=== PATIENT | male | born 1940 | race Caucasian/White ===

== ENCOUNTER → 2023-10-15 12:53 | Outpatient (REF) | payer MEDICARE, BC, SELFPAY | LOC: DHCBC MAIN 12:53 | PROVIDERS: ATTENDING PHYSICIAN Internal Medicine; FAMILY PHYSICIAN Family Medicine | DX: Z95.2 Presence of prosthetic heart valve (principal); T82.857D Stenosis of other cardiac prosthetic devices, implants and grafts, subsequent encounter | CPT/HCPCS: 93306 ==

== ENCOUNTER → 2023-12-18 11:46 | Outpatient (REF) | payer MEDICARE, BC, SELFPAY ==
[2023-12-18 12:42] LABS: INR 3.41; PT 34.4 Sec (11.4-14.6)
== END ==
LOC: REG 11:46
PROVIDERS: ATTENDING PHYSICIAN Internal Medicine; FAMILY PHYSICIAN Family Medicine
DX: Z95.2 Presence of prosthetic heart valve (principal)
CPT/HCPCS: 36415; 85610

== ENCOUNTER → 2023-12-24 14:54 | Outpatient (REF) | payer MEDICARE, BC, SELFPAY ==
[2023-12-24 18:13] LABS: INR 2.52; PT 27.5 Sec (11.4-14.6)
== END ==
LOC: REG 14:54
PROVIDERS: ATTENDING PHYSICIAN Internal Medicine; FAMILY PHYSICIAN Family Medicine
DX: Z95.2 Presence of prosthetic heart valve (principal)
CPT/HCPCS: 36415; 85610

== ENCOUNTER → 2024-01-04 11:17 | Outpatient (REF) | payer MEDICARE, BC, SELFPAY ==
[2024-01-04 12:34] LABS: INR 3.05; PT 31.5 Sec (11.4-14.6)
== END ==
LOC: REG 11:17
PROVIDERS: ATTENDING PHYSICIAN Internal Medicine; FAMILY PHYSICIAN Family Medicine
DX: Z95.2 Presence of prosthetic heart valve (principal); I35.0 Nonrheumatic aortic (valve) stenosis
CPT/HCPCS: 36415; 85610

== ENCOUNTER → 2024-01-15 12:42 | Outpatient (REF) | payer MEDICARE, BC, SELFPAY ==
[2024-01-15 13:50] LABS: INR 3.19; PT 32.6 Sec (11.4-14.6)
== END ==
LOC: REG 12:42
PROVIDERS: ATTENDING PHYSICIAN Internal Medicine; FAMILY PHYSICIAN Family Medicine
DX: Z95.2 Presence of prosthetic heart valve (principal)
CPT/HCPCS: 36415; 85610

== ENCOUNTER → 2024-02-26 11:54 | Outpatient (REF) | payer MEDICARE, BC, SELFPAY ==
[2024-02-26 13:24] LABS: INR 3.14; PT 32.2 Sec (11.4-14.6)
== END ==
LOC: REG 11:54
PROVIDERS: ATTENDING PHYSICIAN Internal Medicine; FAMILY PHYSICIAN Family Medicine
DX: Z95.2 Presence of prosthetic heart valve (principal)
CPT/HCPCS: 36415; 85610

== ENCOUNTER → 2024-03-09 12:06 | Outpatient (REF) | payer MEDICARE, BC, SELFPAY ==
[2024-03-09 13:39] LABS: INR 3.01; PT 31.6 Sec (11.4-14.6)
== END ==
LOC: REG 12:06
PROVIDERS: ATTENDING PHYSICIAN Internal Medicine; FAMILY PHYSICIAN Family Medicine
DX: Z95.2 Presence of prosthetic heart valve (principal)
CPT/HCPCS: 36415; 85610

== ENCOUNTER → 2024-04-04 12:13 | Outpatient (REF) | payer MEDICARE, BC, SELFPAY ==
[2024-04-04 13:29] LABS: INR 2.32; PT 25.4 Sec (11.4-14.6)
== END ==
LOC: REG 12:13
PROVIDERS: ATTENDING PHYSICIAN Internal Medicine; FAMILY PHYSICIAN Family Medicine
DX: Z95.2 Presence of prosthetic heart valve (principal)
CPT/HCPCS: 36415; 85610

== ENCOUNTER → 2024-05-10 13:12 | Outpatient (REF) | payer MEDICARE, BC, SELFPAY ==
[2024-05-10 14:26] LABS: PT 30.2 Sec (11.4-14.6)
== END ==
LOC: REG 13:12
PROVIDERS: ATTENDING PHYSICIAN Internal Medicine; FAMILY PHYSICIAN Family Medicine
DX: Z95.2 Presence of prosthetic heart valve (principal)
CPT/HCPCS: 36415; 85610

== ENCOUNTER → 2024-06-16 12:14 | Outpatient (REF) | payer MEDICARE, BC, SELFPAY | LOC: RAD 12:14 | PROVIDERS: ATTENDING PHYSICIAN Family Medicine | DX: M54.50 Low back pain, unspecified (principal) | CPT/HCPCS: 72072; 72110 ==

== ENCOUNTER 2024-06-28 17:34 | Emergency (ER) | payer MEDICARE, BC, SELFPAY ==
[2024-06-28 17:39] VITALS: BP 108/59
--- NOTE | 2024-06-28 17:40 | ED.GENMED ---
ED Provider Triage
<Miranda Diamond PA-C - Last Filed: 06/30/24 15:01>
-
Patient seen by provider in Triage?: Seen in Triage
Attestation: A medical screening examination has been initiated by a qualified medical provider. Based on the assessment performed at this time, it has been determined that an emergent medical condition may exist and the patient has been informed
that further medical evaluation and possible additional diagnostic testing may be needed.
HPI: 84yoM here after a fall at 2pm today. Sitting on bed, got up to turn off the CPAP and fell. He is not sure why he fell. Denies any preceding dizziness. +Head strike, no LOC. Had an MRI of his back today due to ongoing pain. On Warfarin.
GENERAL: Alert , in no apparent distress
EYE: No visual abnormalities.
NECK: Trachea midline
ENT: No visible abnormalities.
LUNGS: No acute respiratory distress
NEUROLOGICAL: Alert and oriented
SKIN: Skin intact. No visible changes.
MUSCULOSKELETAL: Moving extremities normally
PSYCH: Normal and appropriate interaction.
This is a medical evaluation conducted in person to initiate diagnostic evaluation and provide initial therapeutics. Please see further documentation by the treating clinician.
CT head ordered.
History of Present Illness
<Miranda Diamond PA-C - Last Filed: 06/30/24 15:01>
General
Chief Complaint: Head Injury
Time Seen by Provider: 06/28/24 18:48
<Ivan Herman MD - Last Filed: 06/28/24 20:16>
General
Source: patient
Exam Limitations: none
Nursing documentation reviewed up to this point in time: agreed with
History of Present Illness
History of Present Illness:
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 Patient reports that he stood up and lost
his balance and fell down�initially he said in triage he was not sure how he fell but he says that on thinking about it he believes he may have fallen because he was having some back pain and lost his balance with a walker. He did hit his head but
did not lose consciousness. Brought into the emergency to be evaluated. He denies any preceding dizziness, chest pain or any other symptoms. He denies any headache or neck pain. He does have back pain but this is a chronic issue�it has been
ongoing since April and he has been seeing his primary doctor (Dr. Pineda) for this issue. He has been managing his symptoms with Tylenol and cyclobenzaprine and today had an MRI to better evaluate source of his back pain. He says his pain is no
worse than. Denies any weakness numbness in the legs, saddle anesthesia, incontinence issues.
Review of Systems
<Ivan Herman MD - Last Filed: 06/28/24 20:16>
Review of Systems
All Other Systems: ROS reviewed and negative except as documented in HPI and ROS
Constitutional: Denies fever
Respiratory: Denies trouble breathing
Cardiac: Denies chest pain
ABD/GI: Denies abdominal pain, nausea or vomiting
: Denies flank pain
Musculoskeletal: Reports back pain; Denies joint pain or neck pain
Neurological: Denies dizzy or headache
Phy Exam
<Ivan Herman MD - Last Filed: 06/28/24 20:16>
Physical Exam
Physical Exam:
General: Awake, alert, oriented x3; no acute distress
Head: Normocephalic, minor abrasion to the crown of the head
Eyes: Conjunctiva normal, pupils equal round reactive to light bilaterally
Throat: Airway intact, handling secretions
Neck: Trachea midline, no cervical spine tenderness
Lungs: Clear to auscultation bilaterally, no wheezing, rales, rhonchi
Heart: Regular rate and rhythm, systolic murmur; no chest wall tenderness
Abd: Soft, non distended, nontender
Back: Paraspinal tenderness in the lumbar region, no midline tenderness in the thoracic or lumbar spine no spinal step-offs
Neuro: No gross deficits
Extremities: Atraumatic, no reproducible tenderness, no edema in extremities, equal pulses in all extremities, allows for passive range of motion all extremities without pain
Scores
<Ivan Herman MD - Last Filed: 06/28/24 20:16>
Heart Failure Risk
Heart Failure Risk Score: Not Applicable
Heart Score for Chest Pain Patients
STEMI patient?: Not applicable
Withdrawal Assessment of Alcohol
Withdrawal Assessment Completed?: Not applicable
Course
<Miranda Diamond PA-C - Last Filed: 06/30/24 15:01>
Orders/Labs/Results
Orders:
Orders
06/28/24 17:36
CT Head W/o Iv Contrast Urgent
Comment: on Coumadin
Reason For Exam: head injury
06/28/24 18:49
Electrocardiogram (*1) Urgent
Reason for Study: Vertigo / Dizzy
EKG- Treatment ONCE
06/28/24 18:58
Acetaminophen [Tylenol] 1,000 mg PO NOW STA
06/28/24 19:12
Complete Blood Count/With Diff Urgent
Comprehensive Metabolic Panel Urgent
Prothrombin Time Urgent
Abnormal Lab Results
06/28/24 06/28/24
17:48 19:12
RBC 4.25 L 10^6/uL
(4.70-6.10)
Hct 38.5 L %
(39.0-52.0)
MCH 31.1 H pg
(27.0-31.0)
RDW 15.5 H %
(11.5-14.5)
Absolute Lymphs (auto) 1.0 L 10^3/uL
(1.2-3.4)
Neutrophils % 75.9 H %
(42.2-75.2)
Lymphocytes % 14.1 L %
(20.5-51.1)
PT 33.1 H Sec
(11.4-14.6)
BUN 51 H mg/dl
(9-20)
Creatinine 2.2 H mg/dL
(0.7-1.3)
Glucose 111 H mg/dl
(70-99)
POC Glucose 106 H mg/dl
(70-99)
06/28/24 19:12
06/28/24 19:12
Vital Signs
Initial and Last Documented VS:
Initial Vital Signs
Temp Pulse Resp BP Pulse Ox
98.2 F 89 18 108/59 98
06/28/24 17:39 06/28/24 17:39 06/28/24 17:39 06/28/24 17:39 06/28/24 17:39
Last Documented Vital Signs
Temp Pulse Resp BP Pulse Ox
98.2 F 70 20 125/53 96
06/28/24 17:39 06/28/24 19:45 06/28/24 19:45 06/28/24 19:04 06/28/24 19:45
<Ivan Herman MD - Last Filed: 06/28/24 20:16>
Orders/Labs/Results
Orders:
Orders
06/28/24 17:36
CT Head W/o Iv Contrast Urgent
Comment: on Coumadin
Reason For Exam: head injury
06/28/24 18:49
Electrocardiogram (*1) Urgent
Reason for Study: Vertigo / Dizzy
EKG- Treatment ONCE
06/28/24 18:58
Acetaminophen [Tylenol] 1,000 mg PO NOW STA
06/28/24 19:12
Complete Blood Count/With Diff Urgent
Comprehensive Metabolic Panel Urgent
Prothrombin Time Urgent
Abnormal Lab Results
06/28/24 06/28/24
17:48 19:12
RBC 4.25 L 10^6/uL
(4.70-6.10)
Hct 38.5 L %
(39.0-52.0)
MCH 31.1 H pg
(27.0-31.0)
RDW 15.5 H %
(11.5-14.5)
Absolute Lymphs (auto) 1.0 L 10^3/uL
(1.2-3.4)
Neutrophils % 75.9 H %
(42.2-75.2)
Lymphocytes % 14.1 L %
(20.5-51.1)
PT 33.1 H Sec
(11.4-14.6)
BUN 51 H mg/dl
(9-20)
Creatinine 2.2 H mg/dL
(0.7-1.3)
Glucose 111 H mg/dl
(70-99)
POC Glucose 106 H mg/dl
(70-99)
06/28/24 19:12
06/28/24 19:12
Vital Signs
Initial and Last Documented VS:
Initial Vital Signs
Temp Pulse Resp BP Pulse Ox
98.2 F 89 18 108/59 98
06/28/24 17:39 06/28/24 17:39 06/28/24 17:39 06/28/24 17:39 06/28/24 17:39
Last Documented Vital Signs
Temp Pulse Resp BP Pulse Ox
98.2 F 70 20 125/53 96
06/28/24 17:39 06/28/24 19:45 06/28/24 19:45 06/28/24 19:04 06/28/24 19:45
<Ivan Herman MD - Last Filed: 06/28/24 20:16>
MDM/Problems Addressed
Differential Diagnosis Includes:
Minor head trauma, given blood thinner must rule out intracranial hemorrhage
MDM/Problems Addressed:
84-year-old male presents for evaluation after mechanical fall from ground-level with head trauma. He is on Coumadin status post aortic valve replacement. No other serious injuries from fall although he has had chronic low back pain; had MRI today
as an outpatient. Apparently mention some dizziness in triage he says 'I have dizziness from time to time' but denies having any dizziness today. His vitals and exam are as above. He had a CT head in triage which showed no acute abnormalities.
Will check his INR also check basic screening labs and EKG given reported occasional dizziness. Reassess after the above. Hold on additional back imaging�no midline tenderness, no change in his symptoms since the fall and he already had outpatient
MRI today.
Labs reviewed: CBC unremarkable, CMP shows chronic kidney disease essentially stable. INR 3.24 slightly high side of therapeutic goal. EKG shows sinus rhythm with no high-grade AV block. Patient feeling well remains awake and alert. Vitals have
been stable. Stable for discharge, advised follow-up with Dr. Pineda as an outpatient to review labs and to review results from his outpatient MR today. We spoke about return precautions and all questions were answered.
Chronic conditions affecting care:
Aortic valve placement on Coumadin�this complicates his fall
<Ivan Herman MD - Last Filed: 06/28/24 20:16>
*Radiology
Radiology exam reviewed: radiology read reviewed
*Pulse Oximetry
Patient hypoxic: no
*EKG
Heart Rate: 76
Rate: normal
Rhythm: sinus
[place]: left axis deviation
Interval: first degree heart block
QRS Pattern: normal QRS
Ischemia: no ischemia
*Critical Care Note
Total Time (30-74mins, 75-104mins- exclusive of procedures): Not Applicable
Data Reviewed
Source: patient, records and spouse
ED Attending Note
<Miranda Diamond PA-C - Last Filed: 06/30/24 15:01>
-
Portions of this chart may have been created with voice recognition software.� Occasional wrong word or��sound alike� substitutions may have occurred due to the inherent limitations of voice recognition software.
Discharge Plan
Departure
Patient Disposition: Home (Routine Discharge)
Date of Disposition: 06/28/24
Time of Disposition: 20:08
Patient with high blood pressure during this ER visit?: No
Discharge Problem:
Head trauma
Instructions: Head Injury in Adults (DC)
Prescriptions:
No Action
insulin glargine [Lantus U-100 Insulin] 100 UNIT/ML solution
0 - 40 unit SQ HS
Patient Comments:
DOSE BASED ON BLOOD SUGAR
polyethylene glycol 3350 17 GRAMS powder in packet
17 grams PO Q48H
atorvastatin 10 MG tablet
10 mg PO QPM
coenzyme Q10 60 MG capsule
60 mg PO DAILY
ascorbic acid (vitamin C) [Vitamin C] 500 MG tablet
500 mg PO BID
cinnamon bark [Cinnamon] 500 MG capsule
250 mg PO BID
sitagliptin phosphate [Januvia] 100 MG tablet
100 mg PO QPM
brimonidine-timolol [Combigan] 1 DROP drops
1 drp BOTH EYES BID
saw palmto frt xtr-zinc [place] 1 EACH capsule
1 ea PO BID
Glucose Support Capsules
1 tab PO BID
lisinopril 20 MG tablet
40 mg PO DAILY
aspirin 81 MG tablet,delayed release (DR/EC)
81 mg PO DAILY
hydrochlorothiazide 25 MG tablet
25 mg PO DAILY
insulin aspart U-100 [Novolog FlexPen U-100 Insulin] 300 UNITS/3 ML insulin pen
6 - 25 units SC PRN PRN (Reason: elevated blood sugars)
Patient Comments:
Patient has a free style meter and gives insulin frequently.
acetaminophen 325 MG tablet
650 mg PO Q6HPRN PRN (Reason: headache, mild pain, or fever) 0RF
clopidogrel 75 MG tablet
75 mg PO DAILY Qty: 30 6RF
Referrals:
Migue Pineda MD [Family Provider] - Follow up in 2-3 days
Activity Restrictions/Additional Instructions:
Thank you for visiting the Emergency Department at [facility].
1. Please schedule a follow up appointment as directed. Call first thing tomorrow morning to make an appointment.
2. If indicated, please take your medications as instructed and indicated on discharge paperwork.
3. If any of your symptoms do not improve, or persist, or become more severe within 6-12 hours, please return to the emergency department for further care.
4. Please return to the emergency department if you develop a headache, neck pain/stiffness, fever greater than 100.4F, chest pain, shortness of breath, persistent nausea, vomiting, slurred speech, difficulty walking, numbness/tingling, weakness,
signs of infection or any other symptoms that are worrisome to you.
Please call [phone] if you have any questions.
Interventions
Interventions:
*Risk Screen - Suicide Last Done: 06/28/24 18:35
*General Assessment Last Done: 06/28/24 18:35
*Neglect/Abuse Screening Last Done: 06/28/24 18:35
ED- Fall Risk Assessment Last Done: 06/28/24 18:35
*ED COVID-19 Vaccine History Last Done: 06/28/24 18:35
*Nursing Disposition Last Done: 06/28/24 20:18
ED- Neurological Assessment Last Done: 06/28/24 19:16
ED-Skin Assessment Last Done: 06/28/24 18:35
Discharge Date and Time
Discharge Date/Time: 06/28/24 20:31
Print Language: SALVADOREAN
[2024-06-28 17:49] LABS: Glucose - Point of Care 106 mg/dl (70-99)
[2024-06-28 19:04] VITALS: BP 125/53
[2024-06-28] MEDS: TYLENOL 1000 MG PO (19:04)
[2024-06-28 19:07] VITALS: BMI 36.3
[2024-06-28 19:29] LABS: % Basophils 0.4 % (0-2); % Eosinophils 1.8 % (0-6); % Immature Granulocytes 0.1 % (0-0.5); % Lymphocytes 14.1 % (20.5-51.1); % Monocytes 7.7 % (1.7-9.3); % Neutrophils 75.9 % (42.2-75.2); Absolute Eosinophils 0.1 10^3/uL (0-0.7); Absolute Monocytes 0.5 10^3/uL (0.1-0.6); Absolute Neutrophils 5.1 10^3/uL (1.4-6.5); Hematocrit 38.5 % (39.0-52.0); Hemoglobin 13.2 g/dL (13.0-18.0); Mean Corp Hgb Conc. 34.3 g/dL (33.0-37.0); Mean Corpuscular Hgb 31.1 pg (27.0-31.0); Mean Corpuscular Volume 90.6 fL (80.0-94.0); Mean Platelet Volume 10.2 fL (7.4-10.4); Nucleated Red Blood Cells % 0 % (-); Platelet Count 159 10^3/uL (130-400); Red Blood Cell Count 4.25 10^6/uL (4.70-6.10); Red Cell Dist. Width 15.5 % (11.5-14.5); White Blood Cell Count 6.8 10^3/uL (4.8-10.8)
[2024-06-28 19:35] LABS: INR 3.24; PT 33.1 Sec (11.4-14.6)
[2024-06-28 19:54] LABS: ALT (SGPT) 44 U/L (0-50); AST (SGOT) 46 U/L (17-59); Albumin 4.3 g/dl (3.5-5.0); Alkaline Phosphatase 46 U/L (38-126); Blood Urea Nitrogen 51 mg/dl (9-20); Calcium 9.9 mg/dl (8.4-10.2); Carbon Dioxide 29 mmol/L (22-30); Chloride 98 mmol/L (98-107); Estimated Creatinine Clearance 31 ml/min; Glucose 111 mg/dl (70-99); Potassium 4.2 mmol/L (3.5-5.1); Sodium 141 mmol/L (135-145); Total Bilirubin 0.5 mg/dl (0.2-1.3); Total Protein 7.4 g/dl (6.3-8.2); eGFR 28.81
== END 2024-06-28 20:31 | disposition home or self-care (01) ==
LOC: EMR 17:34
PROVIDERS: EMERGENCY PHYSICIAN Emergency Medicine; FAMILY PHYSICIAN Family Medicine
DX: S09.90XA Unspecified injury of head, initial encounter (principal); W06.XXXA Fall from bed, initial encounter; I10 Essential (primary) hypertension; E78.00 Pure hypercholesterolemia, unspecified; E11.9 Type 2 diabetes mellitus without complications; G89.29 Other chronic pain; Z79.01 Long term (current) use of anticoagulants; Z95.2 Presence of prosthetic heart valve
CPT/HCPCS: 99284; 70450; 80053; 82962; 85025; 85610; 93005

== ENCOUNTER → 2024-08-01 14:04 | Outpatient (REF) | payer MEDICARE, BC, SELFPAY ==
[2024-08-01 15:27] LABS: INR 1.14; PT 14.9 Sec (11.4-14.6)
== END ==
LOC: REG 14:04
PROVIDERS: ATTENDING PHYSICIAN Internal Medicine
DX: Z95.2 Presence of prosthetic heart valve (principal)
CPT/HCPCS: 36415; 85610

== ENCOUNTER → 2024-08-08 13:24 | Outpatient (REF) | payer MEDICARE, BC, SELFPAY ==
[2024-08-08 15:28] LABS: INR 1.98; PT 22.7 Sec (11.4-14.6)
== END ==
LOC: REG 13:24
PROVIDERS: ATTENDING PHYSICIAN Internal Medicine; FAMILY PHYSICIAN Family Medicine
DX: Z95.2 Presence of prosthetic heart valve (principal)
CPT/HCPCS: 36415; 85610

== ENCOUNTER 2024-08-10 14:51 | Outpatient (RCR) | payer MEDICARE, BC, SELFPAY | END 2024-08-10 23:59 | disposition home or self-care (01) | LOC: RPT 14:51 | PROVIDERS: ATTENDING PHYSICIAN Family Medicine | DX: M54.51 Vertebrogenic low back pain (principal); Z73.6 Limitation of activities due to disability; R26.2 Difficulty in walking, not elsewhere classified; M62.81 Muscle weakness (generalized); R26.89 Other abnormalities of gait and mobility; M51.35 Other intervertebral disc degeneration, thoracolumbar region | CPT/HCPCS: 97010; 97110; 97112; 97162 ==

== ENCOUNTER → 2024-08-15 14:00 | Outpatient (REF) | payer MEDICARE, BC, SELFPAY ==
[2024-08-15 15:41] LABS: INR 2.28; PT 25.2 Sec (11.4-14.6)
== END ==
LOC: REG 14:00
PROVIDERS: ATTENDING PHYSICIAN Internal Medicine; FAMILY PHYSICIAN Family Medicine
DX: Z95.2 Presence of prosthetic heart valve (principal)
CPT/HCPCS: 36415; 85610

== ENCOUNTER 2024-08-16 13:54 | Outpatient (RCR) | payer MEDICARE, BC, SELFPAY | END 2024-08-16 23:59 | disposition home or self-care (01) | LOC: RPT 13:54 | PROVIDERS: ATTENDING PHYSICIAN Family Medicine | DX: M54.51 Vertebrogenic low back pain (principal); Z73.6 Limitation of activities due to disability; R26.2 Difficulty in walking, not elsewhere classified; M62.81 Muscle weakness (generalized); R26.89 Other abnormalities of gait and mobility; M51.35 Other intervertebral disc degeneration, thoracolumbar region | CPT/HCPCS: 97010; 97110 ==

== ENCOUNTER → 2024-08-22 14:07 | Outpatient (REF) | payer MEDICARE, BC, SELFPAY ==
[2024-08-22 15:28] LABS: INR 3.05; PT 31.4 Sec (11.4-14.6)
== END ==
LOC: REG 14:07
PROVIDERS: ATTENDING PHYSICIAN Internal Medicine
DX: Z95.2 Presence of prosthetic heart valve (principal)
CPT/HCPCS: 36415; 85610

== ENCOUNTER → 2024-08-29 15:10 | Outpatient (REF) | payer MEDICARE, BC, SELFPAY ==
[2024-08-29 15:55] LABS: INR 3.43; PT 34.3 Sec (11.4-14.6)
== END ==
LOC: REG 15:10
PROVIDERS: ATTENDING PHYSICIAN Internal Medicine; FAMILY PHYSICIAN Family Medicine
DX: Z95.2 Presence of prosthetic heart valve (principal)
CPT/HCPCS: 36415; 85610

== ENCOUNTER → 2024-09-08 12:04 | Outpatient (REF) | payer MEDICARE, BC, SELFPAY ==
[2024-09-08 12:38] LABS: PT 33.1 Sec (11.4-14.6)
== END ==
LOC: REG 12:04
PROVIDERS: ATTENDING PHYSICIAN Internal Medicine; FAMILY PHYSICIAN Family Medicine
DX: Z95.2 Presence of prosthetic heart valve (principal)
CPT/HCPCS: 36415; 85610

== ENCOUNTER → 2024-09-15 13:09 | Outpatient (REF) | payer MEDICARE, BC, SELFPAY ==
[2024-09-15 14:00] LABS: INR 3.48; PT 35.2 Sec (11.4-14.6)
== END ==
LOC: REG 13:09
PROVIDERS: ATTENDING PHYSICIAN Internal Medicine
DX: Z95.2 Presence of prosthetic heart valve (principal)
CPT/HCPCS: 36415; 85610

== ENCOUNTER → 2024-09-22 15:50 | Outpatient (REF) | payer MEDICARE, BC, SELFPAY ==
[2024-09-22 17:01] LABS: INR 2.78; PT 29.7 Sec (11.4-14.6)
== END ==
LOC: REG 15:50
PROVIDERS: ATTENDING PHYSICIAN Internal Medicine
DX: Z95.2 Presence of prosthetic heart valve (principal)
CPT/HCPCS: 36415; 85610

== ENCOUNTER → 2024-10-06 12:42 | Outpatient (REF) | payer MEDICARE, BC, SELFPAY ==
[2024-10-06 13:20] LABS: INR 2.89; PT 30.2 Sec (11.4-14.6)
== END ==
LOC: REG 12:42
PROVIDERS: ATTENDING PHYSICIAN Internal Medicine
DX: Z95.2 Presence of prosthetic heart valve (principal)
CPT/HCPCS: 36415; 85610

== ENCOUNTER → 2024-10-13 11:58 | Outpatient (REF) | payer MEDICARE, BC, SELFPAY ==
[2024-10-13 13:03] LABS: INR 2.66; PT 28.8 Sec (11.4-14.6)
== END ==
LOC: REG 11:58
PROVIDERS: ATTENDING PHYSICIAN Internal Medicine
DX: Z95.2 Presence of prosthetic heart valve (principal)
CPT/HCPCS: 36415; 85610

== ENCOUNTER 2024-10-28 00:34 | Inpatient (IN) | payer MEDICARE, BC, SELFPAY ==
[2024-10-27 21:56] VITALS: BP 139/56
[2024-10-27 22:11] LABS: % Basophils 0.3 % (0-2); % Eosinophils 0.2 % (0-6); % Immature Granulocytes 0.3 % (0-0.5); % Lymphocytes 7.9 % (20.5-51.1); % Monocytes 7.2 % (1.7-9.3); % Neutrophils 84.1 % (42.2-75.2); Absolute Lymphocytes 0.5 10^3/uL (1.2-3.4); Absolute Monocytes 0.4 10^3/uL (0.1-0.6); Absolute Neutrophils 5.1 10^3/uL (1.4-6.5); Hematocrit 35.7 % (39.0-52.0); Hemoglobin 11.9 g/dL (13.0-18.0); Mean Corp Hgb Conc. 33.3 g/dL (33.0-37.0); Mean Corpuscular Hgb 31.2 pg (27.0-31.0); Mean Corpuscular Volume 93.7 fL (80.0-94.0); Mean Platelet Volume 9.9 fL (7.4-10.4); Nucleated Red Blood Cells % 0 % (-); Platelet Count 134 10^3/uL (130-400); Red Blood Cell Count 3.81 10^6/uL (4.70-6.10); Red Cell Dist. Width 15.5 % (11.5-14.5); White Blood Cell Count 6.1 10^3/uL (4.8-10.8)
[2024-10-27 22:17] LABS: COVID-19 Antigen Negative (Negative)
[2024-10-27] MEDS: TYLENOL 1000 MG PO (22:18)
[2024-10-27 22:21] LABS: INR 2.07; PT 23.8 Sec (11.4-14.6)
[2024-10-27 22:23] VITALS: BMI 36.4
[2024-10-27 23:00] VITALS: BP 116/47
--- NOTE | 2024-10-27 23:02 | ED.GENMED ---
History of Present Illness
General
Chief Complaint: Weakness
Source: patient and spouse
Exam Limitations: none
Time Seen by Provider: 10/27/24 22:47
History of Present Illness
History of Present Illness:
See MDM
Past History
Past History
ED Past Medical History: HTN, Hypercholesterolemia and IDDM
ED Past Surgical History: Cardiac
Social History
Tobacco: Non-smoker
Alcohol: None
Phy Exam
Physical Exam
Physical Exam:
See MDM
Sepsis
Sepsis Screening
Sepsis Assessment: Sepsis Ruled Out
Sepsis Screen
Sepsis Screen: Sepsis Ruled Out
Date: 10/27/24
Time: 23:35
Course
Orders/Labs/Results
Orders:
Orders
10/27/24 21:54
COVID-19 Antigen Urgent
Source: Nasal Swab
Influenza A+B Rapid Molecular Urgent
FRED Source: Nasal Swab
Specimen Description:
10/27/24 22:01
Complete Blood Count/With Diff Urgent
Comprehensive Metabolic Panel Urgent
Prothrombin Time Urgent
10/27/24 22:10
Acetaminophen [Tylenol] 1,000 mg .ROUTE .STK-MED ONE
10/27/24 22:18
Acetaminophen [Tylenol] 1,000 mg PO NOW STA
10/27/24 22:33
CR Chest - 2 Views Urgent
Comment: Influenza +
Reason For Exam: weakness/cough/fever x 2 days
10/27/24 23:01
Oseltamivir Phosphate [Tamiflu] 75 mg PO NOW STA
10/27/24 23:02
0.9% Sodium Chloride 1000 ml [Nss] 1,000 ml IV BOLUS
10/27/24 23:30
Troponin I Urgent
10/27/24 23:31
NT-proBNP Urgent
Abnormal Lab Results
10/27/24
22:01
RBC 3.81 L 10^6/uL
(4.70-6.10)
Hgb 11.9 L g/dL
(13.0-18.0)
Hct 35.7 L %
(39.0-52.0)
MCH 31.2 H pg
(27.0-31.0)
RDW 15.5 H %
(11.5-14.5)
Absolute Lymphs (auto) 0.5 L 10^3/uL
(1.2-3.4)
Neutrophils % 84.1 H %
(42.2-75.2)
Lymphocytes % 7.9 L %
(20.5-51.1)
PT 23.8 H Sec
(11.4-14.6)
Sodium 133 L mmol/L
(135-145)
BUN 31 H mg/dl
(9-20)
Creatinine 2.2 H mg/dL
(0.7-1.3)
10/27/24 22:01
10/27/24 22:01
Vital Signs
Initial and Last Documented VS:
Initial Vital Signs
Temp Pulse Resp BP Pulse Ox
103.1 F H 88 26 139/56 89
10/27/24 21:56 10/27/24 21:56 10/27/24 21:56 10/27/24 21:56 10/27/24 21:56
Last Documented Vital Signs
Temp Pulse Resp BP Pulse Ox
103.1 F H 88 26 139/56 95
10/27/24 21:56 10/27/24 21:56 10/27/24 21:56 10/27/24 21:56 10/27/24 22:23
MDM/Problems Addressed
Differential Diagnosis Includes:
HPI and MDM Narrative:
84-year-old male presenting with increased weakness and fatigue. He started with a cough and congestion about 2 days ago. at bedside states he was so weak that she could not get him out of the chair. EMS were called and he needed a
two-person lift assist. On arrival, patient found to be hypoxic to 87%. Blood work was done prior to my assessment and patient found to be influenza positive. Because of his comorbidities, Tamiflu started. Patient is clinically dry. Will give
IV fluids. Will obtain chest x-ray given the hypoxia and will ultimately admit given the supplemental oxygen requirement
Physical exam
General: Weak and fatigued
HEENT: protecting airway
Neck: appears supple
CV: No evidence of cyanosis. Regular rate and rhythm
Resp: No accessory muscle use. Shallow breath sounds
Abd: Non-distended
Extremities: No deformities. No leg edema
Neuro: alert
Psych: Normal affect
Skin: Intact
Problems Addressed including Acute and Chronic Conditions affecting care:
1. Influenza
Acuity: acute
Prognosis: stable
Details: Will start Tamiflu given comorbidities and age
2. Hypoxia
Acuity: acute
Prognosis: stable
Details: Likely in setting of influenza. Will obtain chest x-ray
Updates
Chest x-ray shows enlarged cardiac silhouette but no evidence of pneumonia or pulmonary edema. Will admit
Differential Diagnosis (but not limited to): Pneumonia, influenza, viral syndrome
Testing considered: CT PE
Drug therapy (if applicable): OTC meds, please see d/c instruction regarding Rx drugs
Amount and/or Complexity of Data Reviewed
Clinical info obtained from: Patient
External data reviewed: N/A
Labs I independently reviewed (but not limited to): Chronic kidney disease
Radiology: X-ray independently reviewed: Chest x-ray shows cardiomegaly but no pulmonary edema or pneumonia
Pulse Ox: hypoxic
EKG independently reviewed: N/A
Blaster Helper: Sinus rhythm
Critical Care: N/A
Risk of Complication:
Social Determinants of health: Good social support
Discussed with other providers: Hospitalist
Escalation of Care includes Admit/Obs: Given influenza and hypoxia, will admit
Occasional wrong word or 'sound a like' substitutions may have occurred due to the inherent limitations of voice recognition software. Read the chart carefully and recognize, using context, where substitutions have occurred.
*Critical Care Note
Total Time (30-74mins, 75-104mins- exclusive of procedures): Not Applicable
ED Attending Note
-
Portions of this chart may have been created with voice recognition software.� Occasional wrong word or��sound alike� substitutions may have occurred due to the inherent limitations of voice recognition software.
Discharge Plan
Departure
Patient Disposition: Admit
Date of Disposition: 10/27/24
Time of Disposition: 23:34
Admit to: Telemetry
Presentation/result/management discussed w/ accepting MD/DO: Hospitalist
Discharge Problem:
Hypoxia, Influenza A
Prescriptions:
No Action
insulin glargine [Lantus U-100 Insulin] 100 UNIT/ML solution
0 - 60 unit SQ HS
Patient Comments:
DOSE BASED ON BLOOD SUGAR
coenzyme Q10 60 MG capsule
60 mg PO DAILY
cinnamon bark [Cinnamon] 500 MG capsule
250 mg PO BID
Januvia 100 MG tablet
100 mg PO HS
Glucose Support Capsules
1 cap PO BID
aspirin 81 MG tablet,delayed release (DR/EC)
81 mg PO DAILY
hydrochlorothiazide 25 MG tablet
25 mg PO DAILY
insulin aspart U-100 [Novolog FlexPen U-100 Insulin] 300 UNITS/3 ML insulin pen
0 - 20 units SC DAILYPRN PRN (Reason: elevated blood sugars)
Patient Comments:
Patient has a free style meter and gives insulin frequently.
atorvastatin 40 mg Tablet
40 mg PO HS
amlodipine 5 mg Tablet
5 mg PO DAILY
acetaminophen [Tylenol Extra Strength] 500 mg Tablet
500 mg PO Q6HPRN PRN (Reason: mild pain/fever)
warfarin 5 mg Tablet
5 mg PO SUMOWEFRSA
warfarin 5 mg Tablet
2.5 mg PO TUTH
lisinopril 40 mg Tablet
40 mg PO DAILY
apple cider vinegar 500 mg Tablet
500 mg PO BID
cholecalciferol (vitamin D3) [Vitamin D3] 50 mcg (2,000 unit) Tablet
50 mcg PO DAILY
Bio C 1:1 500-500 mg Capsule
1 cap PO DAILY
quercetin 500 mg Capsule
500 mg PO HS
Referrals:
Migue Pineda MD [Family Provider] -
Interventions
Interventions:
*Risk Screen - Suicide Last Done: 10/27/24 21:56
*General Assessment Last Done: 10/27/24 21:56
*Neglect/Abuse Screening Last Done: 10/27/24 21:56
ED- Cardiac Assessment Last Done: 10/27/24 22:23
ED- Neurological Assessment Last Done: 10/27/24 22:23
ED- Pulmonary Assessment Last Done: 10/27/24 22:23
Discharge Date and Time
Print Language: SERBIAN
[2024-10-27 23:05] LABS: ALT (SGPT) 44 U/L (0-50); AST (SGOT) 58 U/L (17-59); Albumin 3.9 g/dl (3.5-5.0); Alkaline Phosphatase 50 U/L (38-126); Blood Urea Nitrogen 31 mg/dl (9-20); Calcium 8.7 mg/dl (8.4-10.2); Carbon Dioxide 25 mmol/L (22-30); Chloride 99 mmol/L (98-107); Estimated Creatinine Clearance 32 ml/min; Glucose 94 mg/dl (70-99); Potassium 3.9 mmol/L (3.5-5.1); Sodium 133 mmol/L (135-145); Total Bilirubin 0.8 mg/dl (0.2-1.3); Total Protein 6.9 g/dl (6.3-8.2); eGFR 28.81
[2024-10-27] MEDS: TAMIFLU 75 MG PO (23:22)
[2024-10-27] MEDS: NSS 1000 IV (23:22)
--- NOTE | 2024-10-28 00:01 | HPS.HSE ---
Family Physician
-
Family Physician: Migue Pineda
Chief Complaint
-
Weakness
History of Present Illness
This is a 84-year-old with past medical history significant for insulin-dependent diabetes, mitral stenosis status post TAVR, hypertension, CKD stage III, SAMUEL, CAD who presents to the emergency department with a 1 day of worsening weakness.
According to patient and spouse he was at a family gathering about 5 days ago. Then 1 year ago started having runny nose and a cough. No clear sick contacts identified. He was otherwise in usual state of health without any fevers chills or
shortness of breath at that time. This morning the patient had difficulty getting up. He had to have his spouse try to get him up from his recliner to sitting or standing. He was able to do that in the morning. However in the afternoon they
tried to get him up again and he was unable to get up. Spouse then called 911. Patient continued to have the cough. He denies having any shortness of breath. He denies any chest pain. He denies any lower extremity edema, he denies palpitations
lightheadedness or dizziness. Denies any diarrhea nausea or vomiting.
In the emergency department he was febrile to 103 with a blood pressure of 116/50, pulse of 70, satting 88% on room air. CBC was unremarkable. Electrolytes BUN and creatinine were unchanged from prior and mostly normal. Creatinine was 2.2 which
is his most recent baseline. Chest x-ray shows no acute infiltrates. Influenza test was positive. COVID test was negative.
Medical History
Past Medical History
Past Medical History: Reports CAD, HTN, Hypercholesterolemia, IDDM, Renal Failure (CKD stage III) and Other (SAMUEL on CPAP)
Past Surgical History: Reports Cardiac (Status post TAVR)
Social History
Tobacco: Non-smoker
Alcohol: Occasional
Drug: None
Personal:
Living: With Family
Employment: Retired
Family History
Family History: Not pertinent
Allergies / Home Medications
Allergies reflects when Allergies were last updated in [facility].
Home Medications with original date entered in [facility]
Allergy/Medication List:
Allergies
Allergy/AdvReac Type Severity Reaction Status Date / Time
metformin Allergy Mild Pharmacy Verified 06/28/24 17:44
to Review
Home Medications
Glucose Support Capsules 1 cap PO BID Supplement 09/30/19
cinnamon bark 500 mg capsule (Cinnamon) 250 mg PO BID Supplement 09/30/19
coenzyme Q10 60 mg capsule 60 mg PO DAILY Supplement 09/30/19
insulin glargine 100 unit/mL subcutaneous solution (Lantus U-100 Insulin) 0 - 60 unit SQ HS Diabetes 09/30/19
sitagliptin phosphate 100 mg tablet (Januvia) 100 mg PO HS Diabetes 09/30/19
aspirin 81 mg tablet,delayed release 81 mg PO DAILY Blood clot prevention/tx 02/24/20
hydrochlorothiazide 25 mg tablet 25 mg PO DAILY Fluid retention/Swelling 02/24/20
insulin aspart U-100 100 unit/mL (3 mL) subcutaneous pen (Novolog FlexPen U-100 Insulin aspart) 0 - 20 units SC DAILYPRN PRN elevated blood sugars 02/24/20
acetaminophen 500 mg tablet (Tylenol Extra Strength) 500 mg PO Q6HPRN PRN mild pain/fever 10/27/24
amlodipine 5 mg tablet 5 mg PO DAILY 10/27/24
apple cider vinegar 500 mg tablet 500 mg PO BID 10/27/24
ascorbic acid 500 mg-bioflavonoids 500 mg capsule (Bio C 1:1) 1 cap PO DAILY 10/27/24
atorvastatin 40 mg tablet 40 mg PO HS 10/27/24
cholecalciferol (vitamin D3) 50 mcg (2,000 unit) tablet (Vitamin D3) 50 mcg PO DAILY 10/27/24
lisinopril 40 mg tablet 40 mg PO DAILY 10/27/24
quercetin 500 mg capsule 500 mg PO HS 10/27/24
warfarin 5 mg tablet 2.5 mg PO TUTH 10/27/24
warfarin 5 mg tablet 5 mg PO SUMOWEFRSA 10/27/24
Review of Systems
-
History Source: Patient
Constitutional: Reports Fever and Fatigue
EENT: Reports Runny Nose
Respiratory: Reports Cough
Cardiac: Reports No Symptoms
Abdomen/GI: Reports No Symptoms
: Reports No Symptoms
Musculoskeletal: Reports No Symptoms
Skin: Reports No Symptoms
Neurological: Reports Weakness
Endocrine: Reports No Symptoms
Hematologic/Lymphatic: Reports No Symptoms
Psych: Reports No Symptoms
Physical Exam
Vital Signs
Vital Signs
Temp Pulse Resp BP Pulse Ox
98.8 F 70 21 116/47 94
10/27/24 23:32 10/27/24 23:30 10/27/24 23:30 10/27/24 23:00 10/27/24 23:30
Physical Exam
General: Well Developed, Well Nourished and Comfortable
HEENT: NormoCephalic, Anicteric, Moist mucous membranes and Atraumatic
Respiratory: Clear
Cardiac: S1/S2 and Regular Rhythm
Breast: Deferred by me
GI: Soft, Non Tender and Normal Bowel Sounds
Rectal: Deferred by Provider
Genito-urinary: Deferred by me
Musculoskeletal: No Clubbing and No Cyanosis
Skin: Warm
Neuro: AO x 3 and Nonfocal/grossly intact
Hematologic/Lymphatic: No Lymphadenopathy
Psych: Calm
Laboratory Results
-
10/27/24 22:01
10/27/24 22:01
Laboratory Results
PT 23.8 Sec (11.4-14.6) H 10/27/24 22:01
INR 2.07 10/27/24 22:01
Total Bilirubin 0.8 mg/dl (0.2-1.3) 10/27/24 22:01
AST 58 U/L (17-59) 10/27/24 22:01
ALT 44 U/L (0-50) 10/27/24 22:01
Alkaline Phosphatase 50 U/L (38-126) 10/27/24 22:01
Data Reviewed
-
Diagnostic Radiology: Image Personally Visualized and interpreted
Lab Data: Labs Reviewed by me
Old Records: Reviewed
Impression/Plan
-
IMPRESSION:
84-year-old with multiple comorbidities presenting with weakness/fatigue, cough found to have influenza.
PLAN:
Influenza A -onset of symptoms was yesterday. Patient is hypoxic. Chest x-ray shows no acute infiltrate. Patient with high risk influenza. He did get influenza vaccine this year.
- admit to med/surg
- Tamiflu 30mg q 12 hours
- check procalcitonin (no current evidence of superimposed pnuemonia), holding off abx for now
- antipyretics, antitussives
- oxygen to maintain sats > 90%
SAMUEL
- continue CPAP HS
DM II
- lantus 60 hs
- sliding scale insulin moderate scale
- continue januvia
AC - on coumadin for s/p TAVR
- 2.5mg T/, 5mg other days
- asa 81 daily
HTN/CKD/CAD - Mild Trop elevation to 0.042. No CP. ECG pending. Likely mild demend ischemia and hypoxia
- s/p asa 324, continue AC with coumadin, INR is therapeutic, repeat trop in am.
- supplemental oxygen
- continue hctz lisinopril for now
- continue statin an
DVT PPX - on coumadin
Code status - Full Code
[2024-10-28 00:12] LABS: Troponin I 0.042 ng/ml
[2024-10-28 00:35] LABS: NT-proBNP 788 pg/ml
[2024-10-28 01:00] VITALS: BP 136/46
[2024-10-28] MEDS: LOW STRENGTH ASPIRIN 324 MG PO (01:27)
[2024-10-28 02:00] VITALS: BP 130/56; BMI 35.2
--- NOTE | 2024-10-28 02:30 | PTCARENOTE ---
Pt received from ED via stretcher. Shifted over to bed x1 w/o incident. Oriented to surroundings and plan of care discussed. Admission and assessment completed. RT placed pt on CPAP. Call [facility] w/in reach. Bed alarm placed for safety.
[2024-10-28 06:50] LABS: Hematocrit 33.6 % (39.0-52.0); Hemoglobin 11.4 g/dL (13.0-18.0); Mean Corp Hgb Conc. 33.9 g/dL (33.0-37.0); Mean Corpuscular Hgb 31.3 pg (27.0-31.0); Mean Corpuscular Volume 92.3 fL (80.0-94.0); Platelet Count 126 10^3/uL (130-400); Red Blood Cell Count 3.64 10^6/uL (4.70-6.10); Red Cell Dist. Width 15.4 % (11.5-14.5); White Blood Cell Count 5.4 10^3/uL (4.8-10.8)
[2024-10-28 07:25] LABS: Troponin I 0.038 ng/ml
[2024-10-28 07:26] LABS: Blood Urea Nitrogen 31 mg/dl (9-20); Calcium 8.2 mg/dl (8.4-10.2); Carbon Dioxide 26 mmol/L (22-30); Chloride 98 mmol/L (98-107); Estimated Creatinine Clearance 36 ml/min; Glucose 164 mg/dl (70-99); Potassium 3.9 mmol/L (3.5-5.1); Sodium 135 mmol/L (135-145); eGFR 34.35
[2024-10-28 07:30] VITALS: BP 146/61
[2024-10-28 07:37] LABS: Procalcitonin 0.46 ng/ml (0.0-0.25)
[2024-10-28 07:58] LABS: Glucose - Point of Care 179 mg/dl (70-99)
[2024-10-28] MEDS: ORETIC 25 MG PO (08:12)
[2024-10-28] MEDS: TAMIFLU 30 MG PO ×2 (08:12→20:47)
[2024-10-28] MEDS: NORVASC 5 MG PO (08:13)
[2024-10-28] MEDS: NOVOLOG FLEXPEN-MODERATE RESISTANCE 1 UNITS SC ×3 (08:13→17:01)
[2024-10-28] MEDS: ZESTRIL 40 MG PO (08:13)
[2024-10-28] MEDS: ASPIR LOW (ENTERIC COATED) 81 MG PO (08:13)
[2024-10-28] MEDS: ROBITUSSIN DM 5 ML PO ×2 (12:07→17:13)
[2024-10-28] MEDS: LIDOCAINE 4% PATCH 1 PATCH TOPICAL (12:07)
[2024-10-28 12:45] LABS: Glycohemoglobin (HgbA1c) 6.8 % (4.0-5.6)
--- NOTE | 2024-10-28 12:45 | W.PN.HOSP.TC ---
Today's Communication/Plan
-
Monitor vital signs see plan
Recheck Pro-Kahlil in a.m.
Follow fever curve
Continue with Tamiflu
PT/OT
Nonbillable note
Assessment / Plan
Assessment / Plan
General: Well Developed, Well Nourished and Comfortable
HEENT: NormoCephalic, Anicteric, Moist mucous membranes and Atraumatic
Respiratory: Clear
Cardiac: S1/S2 and Regular Rhythm
GI: Soft, Non Tender and Normal Bowel Sounds
Musculoskeletal: No Clubbing and No Cyanosis
Neuro: AO x 3 and Nonfocal/grossly intact
Hematologic/Lymphatic: No Lymphadenopathy
Psych: Calm
Influenza A -onset of symptoms was yesterday. Patient is hypoxic. Chest x-ray shows no acute infiltrate. Patient with high risk influenza. He did get influenza vaccine this year.
Continue with Tamiflu
Pro-Kahlil mildly high, will recheck again tomorrow morning. Chest x-ray without any pneumonia
- antipyretics, antitussives
- oxygen to maintain sats > 90%
SAMUEL
- continue CPAP HS
DM II
Continue with Lantus
- sliding scale insulin moderate scale
- continue januvia
AC - on coumadin for s/p TAVR
- 2.5mg T/, 5mg other days
- asa 81 daily
Monitor INR
Essential hypertension
Continue with HCTZ, lisinopril
CKD stage 3b
monitor
History of SAMUEL
Continue with CPAP
History of CAD
Elevated troponin likely secondary to nonischemic myocardial injury
Continue to monitor
Denies any chest pain
DVT PPX - on coumadin
Code status - Full Code
Anticipated Discharge: Within 24 hours
Subjective/Interval History
-
Date of Service: October 28, 2024
Fever overnight
Objective Data
-
Labs:
Laboratory Results
10/28/24
06:27
WBC 5.4
Hgb 11.4 L
Hct 33.6 L
Plt Count 126 L
Sodium 135
Potassium 3.9
Chloride 98
Carbon Dioxide 26
BUN 31 H
Creatinine 1.9 H
Glucose 164 H
Calcium 8.2 L
Vital Signs:
Vital Signs
Temp Pulse Resp BP Pulse Ox
97.9 F 57 18 146/61 94
10/28/24 07:30 10/28/24 08:12 10/28/24 07:30 10/28/24 08:12 10/28/24 08:04
I&O
10/27/24 10/28/24 10/29/24
06:59 06:59 06:59
Intake Total 0 / 0
Output Total 825 / 825
Balance -825 / -825
[2024-10-28 12:49] LABS: Glucose - Point of Care 170 mg/dl (70-99)
[2024-10-28 15:14] LABS: Urine Albumin 1+ (Neg - Trace); Urine Bilirubin Negative (Negative); Urine Character Clear (Clear); Urine Color Yellow; Urine Glucose Negative (Negative); Urine Ketone Negative (Negative); Urine Leukocyte Negative (Negative); Urine Nitrite Negative (Negative); Urine Occult Blood 2+ (Negative); Urine Urobilinogen Negative (Neg - 1+)
[2024-10-28 16:00] VITALS: BP 106/37
[2024-10-28 16:02] LABS: Urine Squamous Cell 0-2 /LPF (Few)
[2024-10-28 17:01] LABS: Glucose - Point of Care 155 mg/dl (70-99)
[2024-10-28 17:04] VITALS: BP 130/59
[2024-10-28] MEDS: TYLENOL 650 MG PO (17:06)
[2024-10-28] MEDS: COUMADIN 5 MG PO (17:06)
[2024-10-28 21:43] LABS: Glucose - Point of Care 135 mg/dl (70-99)
[2024-10-28] MEDS: LIPITOR 40 MG PO (22:11)
[2024-10-28] MEDS: JANUVIA 50 MG PO (22:12)
[2024-10-28] MEDS: FLUSH (NSS) 1 FLUSH IV (22:20)
[2024-10-28 23:49] VITALS: BP 118/60
[2024-10-29] MEDS: LANTUS 0.25 UNITS SC (01:16)
--- NOTE | 2024-10-29 02:04 | PTCARENOTE ---
Reviewed Lantus insulin order with patient. He stated his glucose is usually higher than his HS Fingerstick of 135. He requested a lower insulin amount. Discussed with SAWYER, covering floor. Lantus 25units per order.
[2024-10-29 04:00] LABS: Glucose - Point of Care 168 mg/dl (70-99)
[2024-10-29 07:00] VITALS: BP 120/55
[2024-10-29 07:59] LABS: Glucose - Point of Care 155 mg/dl (70-99)
[2024-10-29 08:31] LABS: % Basophils 0.4 % (0-2); % Eosinophils 2.5 % (0-6); % Immature Granulocytes 0.4 % (0-0.5); % Monocytes 7.7 % (1.7-9.3); Absolute Eosinophils 0.1 10^3/uL (0-0.7); Absolute Lymphocytes 0.9 10^3/uL (1.2-3.4); Absolute Monocytes 0.4 10^3/uL (0.1-0.6); Absolute Neutrophils 3.4 10^3/uL (1.4-6.5); Hematocrit 36.9 % (39.0-52.0); Hemoglobin 12.1 g/dL (13.0-18.0); Mean Corp Hgb Conc. 32.8 g/dL (33.0-37.0); Mean Corpuscular Hgb 31.1 pg (27.0-31.0); Mean Corpuscular Volume 94.9 fL (80.0-94.0); Mean Platelet Volume 10.2 fL (7.4-10.4); Nucleated Red Blood Cells % 0 % (-); Platelet Count 146 10^3/uL (130-400); Red Blood Cell Count 3.89 10^6/uL (4.70-6.10); Red Cell Dist. Width 15.2 % (11.5-14.5); White Blood Cell Count 4.8 10^3/uL (4.8-10.8)
[2024-10-29 08:32] LABS: INR 1.79
[2024-10-29] MEDS: LIDOCAINE 4% PATCH 1 PATCH TOPICAL (08:35)
[2024-10-29] MEDS: NORVASC 5 MG PO (08:36)
[2024-10-29] MEDS: TAMIFLU 30 MG PO ×2 (08:36→21:55)
[2024-10-29] MEDS: ORETIC 25 MG PO (08:36)
[2024-10-29] MEDS: NOVOLOG FLEXPEN-MODERATE RESISTANCE 1 UNITS SC ×3 (08:36→17:20)
[2024-10-29] MEDS: ASPIR LOW (ENTERIC COATED) 81 MG PO (08:36)
[2024-10-29] MEDS: ZESTRIL 40 MG PO (08:37)
[2024-10-29 08:54] LABS: Procalcitonin 0.58 ng/ml (0.0-0.25)
[2024-10-29 08:59] LABS: Blood Urea Nitrogen 39 mg/dl (9-20); Calcium 8.8 mg/dl (8.4-10.2); Carbon Dioxide 32 mmol/L (22-30); Chloride 95 mmol/L (98-107); Estimated Creatinine Clearance 34 ml/min; Glucose 165 mg/dl (70-99); Potassium 3.7 mmol/L (3.5-5.1); Sodium 136 mmol/L (135-145)
--- NOTE | 2024-10-29 11:40 | W.PN.HOSP.TC ---
Today's Communication/Plan
-
Monitor vital signs see plan
Repeat chest x-ray
Continue with Tamiflu
hopeful dc tomorrow
Assessment / Plan
Assessment / Plan
General: Well Developed, Well Nourished and Comfortable
HEENT: NormoCephalic, Anicteric, Moist mucous membranes and Atraumatic
Respiratory: Clear
Cardiac: S1/S2 and Regular Rhythm
GI: Soft, Non Tender and Normal Bowel Sounds
Musculoskeletal: No Clubbing and No Cyanosis
Neuro: AO x 3 and Nonfocal/grossly intact
Hematologic/Lymphatic: No Lymphadenopathy
Psych: Calm
Influenza A -onset of symptoms was yesterday. Patient is hypoxic. Chest x-ray shows no acute infiltrate. Patient with high risk influenza. He did get influenza vaccine this year.
Continue with Tamiflu
Repeat Pro-Kahlil still high, repeat chest x-ray
- antipyretics, antitussives
- oxygen to maintain sats > 90%
SAMUEL
- continue CPAP HS
DM II
Continue with Lantus
- sliding scale insulin moderate scale
- continue januvia
AC - on coumadin for s/p TAVR
- 2.5mg T/, 5mg other days
- asa 81 daily
Monitor INR
Essential hypertension
Continue with HCTZ, lisinopril
CKD stage 3b
monitor
History of SAMUEL
Continue with CPAP
History of CAD
Elevated troponin likely secondary to nonischemic myocardial injury
Continue to monitor
Denies any chest pain
DVT PPX - on coumadin
Code status - Full Code
Anticipated Discharge: Within 24 hours
Subjective/Interval History
-
Date of Service: October 29, 2024
Denies pain
Objective Data
-
Labs:
Laboratory Results
10/29/24
08:02
WBC 4.8
Hgb 12.1 L
Hct 36.9 L
Plt Count 146
PT 21.0 H
INR 1.79
Sodium 136
Potassium 3.7
Chloride 95 L
Carbon Dioxide 32 H
BUN 39 H
Creatinine 2.0 H
Glucose 165 H
Calcium 8.8
Vital Signs:
Vital Signs
Temp Pulse Resp BP Pulse Ox
98.5 F 64 16 120/55 91
10/29/24 07:00 10/29/24 08:37 10/29/24 07:00 10/29/24 08:37 10/29/24 07:00
I&O
10/28/24 10/29/24 10/30/24
06:59 06:59 06:59
Intake Total 0 / 0 1080 / 1080
Output Total 825 / 825 230 / 230
Balance -825 / -825 850 / 850
[2024-10-29 11:44] LABS: Glucose - Point of Care 153 mg/dl (70-99)
[2024-10-29 15:00] VITALS: BP 129/52
[2024-10-29 16:32] LABS: Glucose - Point of Care 152 mg/dl (70-99)
[2024-10-29] MEDS: COUMADIN 5 MG PO (17:20)
--- NOTE | 2024-10-29 17:24 | CM ---
Alert awake oriented patient who lives with his Saira Hanks who lives in a 5 story home with 0 step to enter and stair glide to bed and bathroom. He is independent in driving and in all activities of daily living.He was offered VN he declined
need.Cpap with [place] cane walker .
No VN hx / No SNF history
Pharmacy [facility] [place]
PCP DR Pineda
PLAN Home Declined VN
[2024-10-29 21:51] LABS: Glucose - Point of Care 141 mg/dl (70-99)
[2024-10-29] MEDS: JANUVIA 50 MG PO (21:55)
[2024-10-29] MEDS: LIPITOR 40 MG PO (21:55)
[2024-10-29 22:43] VITALS: PULSE 57
[2024-10-29 23:40] VITALS: BP 152/60
[2024-10-30 07:00] VITALS: BP 153/61
[2024-10-30 07:06] LABS: % Basophils 0.3 % (0-2); % Eosinophils 3.4 % (0-6); % Immature Granulocytes 0.3 % (0-0.5); % Lymphocytes 24.7 % (20.5-51.1); % Neutrophils 61.3 % (42.2-75.2); Absolute Eosinophils 0.1 10^3/uL (0-0.7); Absolute Lymphocytes 0.9 10^3/uL (1.2-3.4); Absolute Monocytes 0.4 10^3/uL (0.1-0.6); Absolute Neutrophils 2.3 10^3/uL (1.4-6.5); Hematocrit 33.2 % (39.0-52.0); Hemoglobin 11.1 g/dL (13.0-18.0); Mean Corp Hgb Conc. 33.4 g/dL (33.0-37.0); Mean Corpuscular Hgb 30.7 pg (27.0-31.0); Mean Platelet Volume 10.4 fL (7.4-10.4); Nucleated Red Blood Cells % 0 % (-); PT 22.9 Sec (11.4-14.6); Platelet Count 144 10^3/uL (130-400); Red Blood Cell Count 3.61 10^6/uL (4.70-6.10); Red Cell Dist. Width 14.5 % (11.5-14.5); White Blood Cell Count 3.8 10^3/uL (4.8-10.8)
[2024-10-30 07:32] LABS: Blood Urea Nitrogen 41 mg/dl (9-20); Calcium 8.5 mg/dl (8.4-10.2); Carbon Dioxide 31 mmol/L (22-30); Chloride 97 mmol/L (98-107); Estimated Creatinine Clearance 38 ml/min; Glucose 172 mg/dl (70-99); Potassium 3.5 mmol/L (3.5-5.1); Sodium 135 mmol/L (135-145); eGFR 36.66
[2024-10-30 07:38] LABS: Glucose - Point of Care 170 mg/dl (70-99)
[2024-10-30] MEDS: LIDOCAINE 4% PATCH 1 PATCH TOPICAL (07:50)
[2024-10-30] MEDS: TAMIFLU 30 MG PO (07:50)
[2024-10-30] MEDS: ORETIC 25 MG PO (07:51)
[2024-10-30] MEDS: ASPIR LOW (ENTERIC COATED) 81 MG PO (07:51)
[2024-10-30] MEDS: NORVASC 5 MG PO (07:51)
[2024-10-30] MEDS: NOVOLOG FLEXPEN-MODERATE RESISTANCE 1 UNITS SC (07:51)
[2024-10-30] MEDS: ZESTRIL 40 MG PO (07:51)
[2024-10-30] MEDS: ROBITUSSIN DM 5 ML PO (07:57)
--- NOTE | 2024-10-30 10:34 | W.PN.HOSP.TC ---
Today's Communication/Plan
-
Monitor vital sign
see plan
Discharge on remaining days of Tamiflu
Time of discharge 37 minutes
Assessment / Plan
Assessment / Plan
General: Well Developed, Well Nourished and Comfortable
HEENT: NormoCephalic, Anicteric, Moist mucous membranes and Atraumatic
Respiratory: Clear
Cardiac: S1/S2 and Regular Rhythm
GI: Soft, Non Tender and Normal Bowel Sounds
Musculoskeletal: No Clubbing and No Cyanosis
Neuro: AO x 3 and Nonfocal/grossly intact
Hematologic/Lymphatic: No Lymphadenopathy
Psych: Calm
Influenza A -onset of symptoms was yesterday. Patient is hypoxic. Chest x-ray shows no acute infiltrate. Patient with high risk influenza. He did get influenza vaccine this year.
Continue with Tamiflu discharge on remaining doses of Tamiflu
repeat chest x-ray without any infiltration. Procalcitonin could also be high due to CKD. Monitor off antibiotics especially since without fever and improving.
- antipyretics, antitussives
- oxygen to maintain sats > 90%
SAMUEL
- continue CPAP HS
DM II
Continue with Lantus
- sliding scale insulin moderate scale
- continue januvia
AC - on coumadin for s/p TAVR
- 2.5mg T/, 5mg other days
- asa 81 daily
Monitor INR; 2 today
Essential hypertension
Continue with HCTZ, lisinopril
CKD stage 3b
monitor
History of SAMUEL
Continue with CPAP
History of CAD
Elevated troponin likely secondary to nonischemic myocardial injury
Continue to monitor
Denies any chest pain
DVT PPX - on coumadin
Code status - Full Code
Anticipated Discharge: Today
Subjective/Interval History
-
Date of Service: October 30, 2024
Denies pain
Objective Data
-
Labs:
Laboratory Results
10/30/24
06:03
WBC 3.8 L
Hgb 11.1 L
Hct 33.2 L
Plt Count 144
PT 22.9 H
INR 2.00
Sodium 135
Potassium 3.5
Chloride 97 L
Carbon Dioxide 31 H
BUN 41 H
Creatinine 1.8 H
Glucose 172 H
Calcium 8.5
Vital Signs:
Vital Signs
Temp Pulse Resp BP Pulse Ox
97.9 F 61 16 153/61 97
10/30/24 07:00 10/30/24 07:51 10/30/24 07:00 10/30/24 07:51 10/30/24 07:00
I&O
10/29/24 10/30/24 10/31/24
06:59 06:59 06:59
Intake Total 1080 / 1080 1560 / 1560
Output Total 230 / 230
Balance 850 / 850 1560 / 1560
--- NOTE | 2024-10-30 10:44 | W.DCSUMMARY ---
Discharge Summary
Discharge Data
Date of Admission: 10/28/24
Date of Discharge: 10/30/24
-
Pending Results: No
Hospital Course
84-year-old male with past medical history of SAMUEL on CPAP, diabetes mellitus, aortic stenosis status post TAVR on Coumadin, essential hypertension, CKD, CAD came to the hospital with weakness and hypoxia secondary to influenza A infection. Patient
was started on Tamiflu which improved his symptoms. Chest x-ray did not show any acute infiltrates. Procalcitonin was checked and was mildly high which was likely thought was secondary to chronic kidney disease. Once his symptoms continue to
improve, he was then discharged home with instructions to follow-up with all his physicians outpatient.
Discharge Plan
-
Patient Disposition: Home (Routine Discharge)
Discharge Diagnosis/Procedures: Influenza A infection
Weakness secondary to flu
Chronic kidney disease
Aortic stenosis status post TAVR on Coumadin
Diet: As tolerated
Activity: As tolerated
Driving Restrictions: As prior to admission
Bathing Restrictions: None
Referrals:
Migue Pineda MD [Family Provider] - in less than 1 week
Prescriptions:
New
lidocaine 4 % Adhesive Patch,Medicated
1 patch topical DAILY Qty: 30 0RF
oseltamivir 30 mg Capsule
30 mg PO BID Qty: 4 0RF
guaifenesin 1,200 mg tablet extended release 12hr
1,200 mg PO BID 7 Days Qty: 14 0RF
benzonatate 100 mg capsule
100 mg PO TID PRN (Reason: Cough) Qty: 20 0RF
Continued
insulin glargine [Lantus U-100 Insulin] 100 UNIT/ML solution
0 - 60 unit SQ HS
Patient Comments:
DOSE BASED ON BLOOD SUGAR
coenzyme Q10 60 MG capsule
60 mg PO DAILY
cinnamon bark [Cinnamon] 500 MG capsule
250 mg PO BID
Januvia 100 MG tablet
100 mg PO HS
Glucose Support Capsules
1 cap PO BID
aspirin 81 MG tablet,delayed release (DR/EC)
81 mg PO DAILY
hydrochlorothiazide 25 MG tablet
25 mg PO DAILY
insulin aspart U-100 [Novolog FlexPen U-100 Insulin] 300 UNITS/3 ML insulin pen
0 - 20 units SC DAILYPRN PRN (Reason: elevated blood sugars)
Patient Comments:
Patient has a free style meter and gives insulin frequently.
atorvastatin 40 mg Tablet
40 mg PO HS
amlodipine 5 mg Tablet
5 mg PO DAILY
acetaminophen [Tylenol Extra Strength] 500 mg Tablet
500 mg PO Q6HPRN PRN (Reason: mild pain/fever)
warfarin 5 mg Tablet
5 mg PO SUMOWEFRSA
warfarin 5 mg Tablet
2.5 mg PO TUTH
lisinopril 40 mg Tablet
40 mg PO DAILY
apple cider vinegar 500 mg Tablet
500 mg PO BID
cholecalciferol (vitamin D3) [Vitamin D3] 50 mcg (2,000 unit) Tablet
50 mcg PO DAILY
Bio C 1:1 500-500 mg Capsule
1 cap PO DAILY
quercetin 500 mg Capsule
500 mg PO HS
Discharge Orders:
Discharge Patient (As Directed); Ordered 10/30/24
Ordered By: Ishan Damon
Discharge Date and Time
Discharge Date/Time: 10/30/24 14:33
Print Language: ARMENIAN
[2024-10-30 11:14] LABS: Glucose - Point of Care 234 mg/dl (70-99)
[2024-10-30] MEDS: NOVOLOG FLEXPEN-MODERATE RESISTANCE 3 UNITS SC (11:20)
--- NOTE | 2024-10-30 11:32 | CM ---
MD entered order for discharge.
Spoke with pt he said he was ready for dc.
His Saira Hanks will drive him home.
Offered VN she declined need.
Plan Home with no needs
[2024-10-30] MEDS: MUCINEX 1200 MG PO (12:33)
[2024-10-30 14:11] VITALS: BP 133/61
== END 2024-10-30 14:33 | disposition home or self-care (01) | DRG 195 ==
LOC: 3 WEST ACU 00:34
PROVIDERS: Emergency Medicine; ADMITTING PHYSICIAN Internal Medicine; ATTENDING PHYSICIAN Internal Medicine; EMERGENCY PHYSICIAN Student in an Organized Health Care Education/Training Program; FAMILY PHYSICIAN Family Medicine
DX: J10.1 Influenza due to other identified influenza virus with other respiratory manifestations (principal); Z11.52 Encounter for screening for COVID-19; G47.33 Obstructive sleep apnea (adult) (pediatric); E11.22 Type 2 diabetes mellitus with diabetic chronic kidney disease; I12.9 Hypertensive chronic kidney disease with stage 1 through stage 4 chronic kidney disease, or unspecified chronic kidney disease; N18.30 Chronic kidney disease, stage 3 unspecified; Z95.2 Presence of prosthetic heart valve; E11.65 Type 2 diabetes mellitus with hyperglycemia; I25.10 Atherosclerotic heart disease of native coronary artery without angina pectoris; Z79.01 Long term (current) use of anticoagulants; Z79.4 Long term (current) use of insulin; Z79.82 Long term (current) use of aspirin; Z79.899 Other long term (current) drug therapy
CPT/HCPCS: 71046; 80048; 80053; 81003; 81015; 82962; 83036; 83880; 84145; 84484; 85025; 85027; 85610; 87502; 87811; 93005; 94660; 96360; 97163; 97167; 97530; 99285

== ENCOUNTER → 2024-11-09 14:33 | Outpatient (REF) | payer MEDICARE, BC, SELFPAY ==
[2024-11-09 15:24] LABS: INR 1.75
== END ==
LOC: REG 14:33
PROVIDERS: ATTENDING PHYSICIAN Internal Medicine
DX: Z95.2 Presence of prosthetic heart valve (principal)
CPT/HCPCS: 36415; 85610

== ENCOUNTER → 2024-11-17 12:44 | Outpatient (REF) | payer MEDICARE, BC, SELFPAY ==
[2024-11-17 13:44] LABS: PT 25.7 Sec (11.4-14.6)
== END ==
LOC: REG 12:44
PROVIDERS: ATTENDING PHYSICIAN Internal Medicine
DX: Z95.2 Presence of prosthetic heart valve (principal)
CPT/HCPCS: 36415; 85610

== ENCOUNTER → 2024-11-24 13:23 | Outpatient (REF) | payer MEDICARE, BC, SELFPAY ==
[2024-11-24 14:36] LABS: INR 2.39; PT 26.5 Sec (11.4-14.6)
== END ==
LOC: REG 13:23
PROVIDERS: ATTENDING PHYSICIAN Internal Medicine
DX: Z95.2 Presence of prosthetic heart valve (principal)
CPT/HCPCS: 36415; 85610

== ENCOUNTER → 2024-12-01 11:20 | Outpatient (REF) | payer MEDICARE, BC, SELFPAY ==
[2024-12-01 12:36] LABS: INR 2.92; PT 30.9 Sec (11.4-14.6)
[2024-12-01 13:25] LABS: ALT (SGPT) 36 U/L (0-50); AST (SGOT) 31 U/L (17-59); Alkaline Phosphatase 41 U/L (38-126); Blood Urea Nitrogen 32 mg/dl (9-20); Calcium 9.4 mg/dl (8.4-10.2); Carbon Dioxide 31 mmol/L (22-30); Chloride 102 mmol/L (98-107); Glucose 150 mg/dl (70-99); HDL Cholesterol 41 mg/dl; LDL Cholesterol, Calculated 49 mg/dl; Potassium 4.1 mmol/L (3.5-5.1); Sodium 140 mmol/L (135-145); Total Bilirubin 0.6 mg/dl (0.2-1.3); Total Cholesterol 137 mg/dl (50-199); Total Protein 6.8 g/dl (6.3-8.2); Triglyceride 235 mg/dl (10-149); Very Low Density Lipoprotein 47 mg/dl (0-30); eGFR 42.22
== END ==
LOC: REG 11:20
PROVIDERS: ATTENDING PHYSICIAN Internal Medicine; FAMILY PHYSICIAN Family Medicine
DX: Z95.2 Presence of prosthetic heart valve (principal); I10 Essential (primary) hypertension; N18.32 Chronic kidney disease, stage 3b; E11.59 Type 2 diabetes mellitus with other circulatory complications
CPT/HCPCS: 36415; 80053; 80061; 85610

== ENCOUNTER → 2024-12-29 09:37 | Outpatient (REF) | payer MEDICARE, BC, SELFPAY ==
[2024-12-29 11:23] LABS: INR 2.02; PT 23.3 Sec (11.4-14.6)
== END ==
LOC: RCS 09:37
PROVIDERS: ATTENDING PHYSICIAN Internal Medicine; FAMILY PHYSICIAN Family Medicine
DX: T82.857D Stenosis of other cardiac prosthetic devices, implants and grafts, subsequent encounter (principal); I10 Essential (primary) hypertension; I44.0 Atrioventricular block, first degree; I35.0 Nonrheumatic aortic (valve) stenosis; Z95.2 Presence of prosthetic heart valve
CPT/HCPCS: 36415; 85610; 93306

== ENCOUNTER → 2025-06-19 14:22 | Outpatient (REF) | payer MEDICARE, BC, SELFPAY ==
[2025-06-19 15:10] LABS: INR 2.49; PT 26.9 Sec (11.4-14.6)
[2025-06-19 15:11] LABS: Hematocrit 36.8 % (39.0-52.0); Hemoglobin 12.1 g/dL (13.0-18.0); Mean Corp Hgb Conc. 32.9 g/dL (33.0-37.0); Mean Corpuscular Volume 93.9 fL (80.0-94.0); Nucleated Red Blood Cells % 0 % (-); Platelet Count 172 10^3/uL (130-400); Red Cell Dist. Width 14.9 % (11.5-14.5)
[2025-06-19 15:28] LABS: ALT (SGPT) 35 U/L (0-50); AST (SGOT) 30 U/L (17-59); Albumin 4.0 g/dl (3.5-5.0); Alkaline Phosphatase 43 U/L (38-126); Blood Urea Nitrogen 32 mg/dl (9-20); Calcium 9.4 mg/dl (8.4-10.2); Carbon Dioxide 33 mmol/L (22-30); Chloride 103 mmol/L (98-107); Glucose 130 mg/dl (70-99); HDL Cholesterol 47 mg/dl; LDL Cholesterol, Calculated 60 mg/dl; Potassium 4.0 mmol/L (3.5-5.1); Sodium 140 mmol/L (135-145); Total Protein 7.4 g/dl (6.3-8.2); Very Low Density Lipoprotein 29 mg/dl (0-30); eGFR 34.35
[2025-06-20 11:06] LABS: Glycohemoglobin (HgbA1c) 7.6 % (4.0-5.6)
== END ==
LOC: REG 14:22
PROVIDERS: ATTENDING PHYSICIAN Internal Medicine; FAMILY PHYSICIAN Family Medicine
DX: E11.22 Type 2 diabetes mellitus with diabetic chronic kidney disease (principal); E78.00 Pure hypercholesterolemia, unspecified; Z95.2 Presence of prosthetic heart valve
CPT/HCPCS: 36415; 80053; 80061; 83036; 85025; 85610

== ENCOUNTER → 2025-06-27 12:36 | Outpatient (REF) | payer MEDICARE, BC, SELFPAY ==
[2025-06-27 13:34] LABS: INR 2.36; PT 25.9 Sec (11.4-14.6)
== END ==
LOC: REG 12:36
PROVIDERS: ATTENDING PHYSICIAN Internal Medicine; FAMILY PHYSICIAN Family Medicine
DX: Z95.2 Presence of prosthetic heart valve (principal)
CPT/HCPCS: 36415; 85610

== ENCOUNTER → 2025-07-06 12:01 | Outpatient (REF) | payer MEDICARE, BC, SELFPAY ==
[2025-07-06 13:04] LABS: INR 1.96; PT 22.5 Sec (11.4-14.6)
== END ==
LOC: REG 12:01
PROVIDERS: ATTENDING PHYSICIAN Internal Medicine; FAMILY PHYSICIAN Family Medicine
DX: Z95.2 Presence of prosthetic heart valve (principal)
CPT/HCPCS: 36415; 85610

== ENCOUNTER → 2025-07-13 12:33 | Outpatient (REF) | payer MEDICARE, BC, SELFPAY ==
[2025-07-13 14:03] LABS: INR 1.90; PT 22.3 Sec (11.4-14.6)
== END ==
LOC: REG 12:33
PROVIDERS: ATTENDING PHYSICIAN Internal Medicine; FAMILY PHYSICIAN Family Medicine
DX: Z95.2 Presence of prosthetic heart valve (principal)
CPT/HCPCS: 36415; 85610

== ENCOUNTER → 2025-08-14 15:30 | Outpatient (REF) | payer MEDICARE, BC, SELFPAY ==
[2025-08-14 16:35] LABS: INR 2.63; PT 28.3 Sec (11.4-14.6)
== END ==
LOC: REG 15:30
PROVIDERS: ATTENDING PHYSICIAN Internal Medicine; FAMILY PHYSICIAN Family Medicine
DX: Z95.2 Presence of prosthetic heart valve (principal)
CPT/HCPCS: 36415; 85610